=== PATIENT | female | born 1965 ===

== ENCOUNTER 2021-08-29 08:33 | Inpatient (IN) | payer MEDICAID, OTHER ==
[~2021-08-29] VITALS: Ht 165.1 cm; Wt 120.0 kg
[2021-08-29] MEDS ORDERED: ACETAMINOPHEN 325 MG TAB PO ONE (09:00)
[2021-08-29] MEDS ORDERED: cefTRIAXone 1GM/50ML D5W 50 ML IV ONE (09:45)
[2021-08-29] MEDS ORDERED: AZITHROMYCIN 500MG/ 250ML 250 ML IV ONE (09:45)
[2021-08-29] MEDS ORDERED: DexAMETHasone SOD PHOS 10MG/1ML VIAL INJ IV ONE (09:45)
[2021-08-29 09:53] LABS: Hemoglobin 15.9 g/dL (12.2-16.2); Mean Corpuscular Hgb Conc. 33.8 g/dL (32.0-36.0); Red Blood Cells 5.67 10^6/uL (4.0-5.20); Red Cell Distribution Width 13.5 % (11.8-14.3); White Blood Cell 12.8 10^3/uL (4.4-10.8)
[2021-08-29 10:27] LABS: Basophils % (manual) 0 (0.0-2.0); Blast Cells 0; Eosinophils % (manual) 0 (0-7); Metamyelocytes % 0; Myelocytes % 0; Promyelocytes % 0; Reactive Lymphocytes 0
[2021-08-29 10:33] LABS: Lactic Acid w/Reflex 5.9 mmol/L (0.4-2.0)
[2021-08-29 10:46] LABS: Band Neutrophils % (manual) 31; Lymphocytes % (manual) 5 (10.0-50.0); Monocytes % (manual) 1 (0-12)
[2021-08-29] MEDS ORDERED: ASCORBIC ACID 500 MG TAB PO ONE (11:15)
[2021-08-29] MEDS ORDERED: CHOLECALCIFEROL (VITD3) 2,000 UNIT CAP/TAB PO ONE (11:15)
[2021-08-29] MEDS ORDERED: ZINC SULFATE 220mg CAP or TAB PO ONE (11:15)
[2021-08-29 11:25] LABS: Albumin 2.4 g/dL (3.4-5.0); Calcium 8.2 mg/dL (8.5-10.1); Potassium 3.2 mmol/L (3.5-5.1)
[2021-08-29 11:31] LABS: BUN/Creatinine Ratio 12.7; Bilirubin, Total 0.7 mg/dL (0.2-1.0); Total Protein 7.2 g/dL (6.4-8.2)
[2021-08-29] MEDS ORDERED: POTASSIUM EFFERVESENT TAB 25 MEQ PO ONE (12:45)
[2021-08-29 13:10] VITALS: BP 81/60
[2021-08-29 15:03] VITALS: BP 96/52
[2021-08-29] MEDS ORDERED: NITROGLYCERIN 0.4 MG SL TAB SL PRN (15:30)
[2021-08-29] MEDS ORDERED: DexAMETHasone SOD PHOS 4 MG/1ML SDV INJ IV ONE (15:30)
[2021-08-29] MEDS ORDERED: MORPHINE SULFATE INJECTION 2 MG/ML SYRG IV PRN (15:30)
[2021-08-29] MEDS ORDERED: ALBUMIN 25% 100 ML IV ONE (15:30)
[2021-08-29 18:12] VITALS: BP 110/60
[2021-08-29] MEDS ORDERED: VANCOMYCIN PER PHARMACY 0 MG IV SCH (22:45)
[2021-08-29] MEDS ORDERED: TEMAZEPAM 15 MG CAP PO ONE (22:45)
[2021-08-29] MEDS ORDERED: VANCOMYCIN 1GM/250ML 250 ML IV ONE (23:00)
[2021-08-29] MEDS ORDERED: ETOMIDATE (2MG/ML) 20ML VIAL IV ONE (23:49)
[2021-08-29] MEDS ORDERED: SUCCINYLCHOLINE CHLORIDE 20 MG/ML 10ML VIAL IV ONE (23:49)
[2021-08-30] VITALS (7 sets, daily range): BP systolic 91–121; BP diastolic 59–83
[2021-08-30] MEDS ORDERED: ETOMIDATE (2MG/ML) 20ML VIAL IV ONE
[2021-08-30] MEDS ORDERED: SUCCINYLCHOLINE CHLORIDE 20 MG/ML 10ML VIAL IV ONE
[2021-08-30] MEDS ORDERED: LORazepam 2MG/ML-1ML VIAL IV PRN (00:30)
[2021-08-30] MEDS ORDERED: PANTOPRAZOLE 40 MG/10 ML VIAL INJ IV ONE (00:30)
[2021-08-30] MEDS ORDERED: ALBUMIN 25% 100 ML IV ONE (00:30)
[2021-08-30] MEDS ORDERED: MORPHINE SULFATE 4 MG/ML SYR/VIAL IV PRN (00:30)
[2021-08-30] MEDS ORDERED: MAGNESIUM SULFATE 1GM/100ML 100 ML IV ONE (00:30)
[2021-08-30] MEDS ORDERED: REMDESIVIR PER PHARMACY 0 ML IV SCH (00:30)
[2021-08-30] MEDS ORDERED: VANCOMYCIN PER PHARMACY 1,000 MG IV SCH (00:30)
[2021-08-30] MEDS ORDERED: ENOXAPARIN SOD 100 MG/1 ML SYRINGE SC ONE (00:30)
[2021-08-30] MEDS ORDERED: ALBUTEROL SULF HFA 90MCG INH 200DOSE IN PRN (00:30)
[2021-08-30] MEDS ORDERED: ACETAMINOPHEN 500 MG TAB PO PRN (00:30)
[2021-08-30] MEDS ORDERED: POTASSIUM CHL 20MEQ/100ML 100 ML IV ONE (00:30)
[2021-08-30] MEDS ORDERED: MIDAZOLAM DRIP 50 mg/50mL 50 ML IV ONE (00:33)
[2021-08-30] MEDS ORDERED: HYDROcodone-ACET 5/325MG TAB PO PRN (00:45)
[2021-08-30] MEDS ORDERED: MORPHINE SULFATE INJECTION 2 MG/ML SYRG IV PRN ×2 (00:45)
[2021-08-30] MEDS ORDERED: DOCUSATE SOD 100 MG CAP PO PRN (00:45)
[2021-08-30] MEDS ORDERED: ONDANSETRON HCL 4 MG/2 ML VIAL IV PRN (00:45)
[2021-08-30] MEDS ORDERED: ALUM & MAG HYDROX-SIMETH LIQ(MAALOX) 30 ML PO PRN (00:45)
[2021-08-30] MEDS ORDERED: LORazepam 0.5 MG TAB PO PRN (00:45)
[2021-08-30] MEDS ORDERED: NITROGLYCERIN 0.4 MG SL TAB SL PRN (00:45)
[2021-08-30] MEDS: PHENYLEPHRINE IV 250 ML IV SCH ×3 (02:45→19:25)
[2021-08-30] MEDS ORDERED: fentaNYL Drip 2500mCg/250mlNS 250 ML IV SCH (02:45)
[2021-08-30] MEDS: NOREPINEPHRINE 8 MG/250ML KIT 250 ML IV SCH (02:49)
[2021-08-30] MEDS: fentaNYL Drip 2500mCg/250mlNS 250 ML IV SCH (02:50)
[2021-08-30] MEDS: PROPOFOL 100 ML IV SCH (04:01)
[2021-08-30] MEDS: ALBUMIN 25% 100 ML IV SCH ×3 (06:00→22:00)
[2021-08-30] MEDS ORDERED: PIPERACILLIN-TAZOB 3.375GM 100 ML IV SCH (06:00)
[2021-08-30 06:33] LABS: Basophils # (auto) 0 10 ^3/uL (0-0.2); Basophils % (auto) 0.2 % (0.0-2.0); Eosinophils # (auto) 0 10 ^3/uL (0-0.8); Hematocrit 40.5 % (36.0-46.0); Hemoglobin 13.9 g/dL (12.2-16.2); Lymphocytes # (auto) 0.6 10 ^3/uL (0.4-5.4); Lymphocytes % (auto) 3.7 % (10.0-50.0); Mean Corpuscular Hemoglobin 28.1 pg (28.0-32.0); Mean Corpuscular Hgb Conc. 34.3 g/dL (32.0-36.0); Mean Corpuscular Volume 81.8 fL (80.0-100.0); Monocytes # (auto) 0.3 10 ^3/uL (0-1.3); Monocytes % (auto) 2.2 % (0.0-12.0); Neutrophils # (auto) 14.6 10 ^3/uL (1.6-8.6); Neutrophils % (auto) 93.9 % (37.0-80.0); Nucleated Red Blood Cells % 0.1 %; Red Blood Cells 4.96 10^6/uL (4.0-5.20); Red Cell Distribution Width 13.9 % (11.8-14.3); White Blood Cell 15.5 10^3/uL (4.4-10.8)
[2021-08-30 06:51] LABS: INR 0.99 (0.9-1.15); Partial Thromboplastin Time 37.7 sec (23.6-33.0)
[2021-08-30 06:53] LABS: Potassium 3.9 mmol/L (3.5-5.1)
[2021-08-30 07:00] LABS: Thyroid Stimulating Hormone 0.21 uIU/mL (0.358-3.74)
[2021-08-30 07:07] LABS: Albumin 2.9 g/dL (3.4-5.0); BUN/Creatinine Ratio 18.6; Bilirubin, Total 0.8 mg/dL (0.2-1.0); Calcium 7.9 mg/dL (8.5-10.1); Magnesium 3.4 mg/dL (1.6-2.6); Phosphorus 3.5 mg/dL (2.5-4.90); Uric Acid 5.7 mg/dL (2.6-6.0)
[2021-08-30] MEDS ORDERED: BUDESONIDE (INHALATION) 180 MCG IH IN SCH (10:00)
[2021-08-30] MEDS: ENOXAPARIN SOD 100 MG/1 ML SYRINGE SC SCH ×2 (10:23→22:00)
[2021-08-30] MEDS: PANTOPRAZOLE 40 MG/10 ML VIAL INJ IV SCH (10:23)
[2021-08-30] MEDS: CHOLECALCIFEROL (VITD3) 2,000 UNIT CAP/TAB PO SCH (10:23)
[2021-08-30] MEDS: POTASSIUM CHL 20 Meq TABLET PO SCH ×2 (10:23→22:00)
[2021-08-30] MEDS: IVERMECTIN 3 MG TAB PO SCH (10:23)
[2021-08-30] MEDS: DexAMETHasone SOD PHOS 10MG/1ML VIAL INJ IV SCH (10:23)
[2021-08-30] MEDS: ASCORBIC ACID 1,000 MG TAB PO SCH (10:23)
[2021-08-30] MEDS: ASPirin 81 mg TAB PO SCH (10:23)
[2021-08-30] MEDS: ZINC SULFATE 220mg CAP or TAB PO SCH (10:23)
[2021-08-30] MEDS: MEROPENEM 1GM IVPB 100 ML IV SCH ×2 (11:52→23:06)
[2021-08-30] MEDS ORDERED: VANCOMYCIN 500 MG in D5W 5% 100 ML IV ONE (18:00)
[2021-08-30] MEDS: ATORVASTATIN 20 MG TAB PO SCH (22:00)
[2021-08-31] VITALS (35 sets, daily range): BP systolic 97–129; BP diastolic 58–83
[2021-08-31] MEDS: NOREPINEPHRINE 8 MG/250ML KIT 250 ML IV SCH (00:30)
[2021-08-31] MEDS: fentaNYL Drip 2500mCg/250mlNS 250 ML IV SCH ×2 (01:00→20:28)
[2021-08-31] MEDS: PROPOFOL 100 ML IV SCH ×2 (02:45→17:39)
[2021-08-31] MEDS: PHENYLEPHRINE IV 250 ML IV SCH ×3 (03:45→20:25)
[2021-08-31 05:26] LABS: Alcohol, Urine < 3.0 mg/dL (0-10); Amphetamine Screen, Urine POSITIVE (NEGATIVE); Barbiturate Scree,Urine NEGATIVE (NEGATIVE); Cannabinoid Screen, Urine NEGATIVE (NEGATIVE); Sodium Urine < 5 mmol/L (40-220)
[2021-08-31 05:31] LABS: Urine Bacteria FEW /hpf (None Seen); Urine Blood 1+ /uL (Negative); Urine Hyaline Cast MOD /lpf (0 - 2); Urine WBC 6 /hpf (0 - 5)
[2021-08-31 05:43] LABS: Benzodiazephine Screen, Urine POSITIVE (NEGATIVE); Cocaine Screen, Urine NEGATIVE (NEGATIVE); Creatinine, Urine 171 mg/dL (30.0-125.0); Opiate Scree,Urine NEGATIVE (NEGATIVE); Phencyclidine Screen, Urine NEGATIVE (NEGATIVE)
[2021-08-31 07:23] LABS: Basophils # (auto) 0 10 ^3/uL (0-0.2); Basophils % (auto) 0.1 % (0.0-2.0); Eosinophils # (auto) 0 10 ^3/uL (0-0.8); Hematocrit 35.6 % (36.0-46.0); Hemoglobin 11.8 g/dL (12.2-16.2); Lymphocytes # (auto) 0.4 10 ^3/uL (0.4-5.4); Lymphocytes % (auto) 3.4 % (10.0-50.0); Mean Corpuscular Hemoglobin 27.6 pg (28.0-32.0); Mean Corpuscular Hgb Conc. 33.1 g/dL (32.0-36.0); Mean Corpuscular Volume 83.3 fL (80.0-100.0); Monocytes # (auto) 0.4 10 ^3/uL (0-1.3); Monocytes % (auto) 3.6 % (0.0-12.0); Neutrophils # (auto) 10.9 10 ^3/uL (1.6-8.6); Neutrophils % (auto) 92.9 % (37.0-80.0); Nucleated Red Blood Cells % 0.1 %; Red Blood Cells 4.27 10^6/uL (4.0-5.20); Red Cell Distribution Width 13.8 % (11.8-14.3); White Blood Cell 11.8 10^3/uL (4.4-10.8)
[2021-08-31 07:46] LABS: Potassium 4.7 mmol/L (3.5-5.1)
[2021-08-31 07:53] LABS: Albumin 3.1 g/dL (3.4-5.0); BUN/Creatinine Ratio 18.4; Bilirubin, Total 0.8 mg/dL (0.2-1.0); Calcium 7.3 mg/dL (8.5-10.1)
[2021-08-31] MEDS: ASCORBIC ACID 1,000 MG TAB PO SCH (10:00)
[2021-08-31] MEDS: DexAMETHasone SOD PHOS 10MG/1ML VIAL INJ IV SCH (10:00)
[2021-08-31] MEDS: PANTOPRAZOLE 40 MG/10 ML VIAL INJ IV SCH (10:00)
[2021-08-31] MEDS: POTASSIUM CHL 20 Meq TABLET PO SCH (10:00)
[2021-08-31] MEDS: ZINC SULFATE 220mg CAP or TAB PO SCH (10:00)
[2021-08-31] MEDS: CHOLECALCIFEROL (VITD3) 2,000 UNIT CAP/TAB PO SCH (10:00)
[2021-08-31] MEDS: ENOXAPARIN SOD 100 MG/1 ML SYRINGE SC SCH ×2 (10:00→21:00)
[2021-08-31] MEDS: ASPirin 81 mg TAB PO SCH (10:00)
[2021-08-31] MEDS: MEROPENEM 1GM IVPB 100 ML IV SCH ×2 (11:17→23:00)
[2021-08-31] MEDS: IVERMECTIN 3 MG TAB PO SCH (13:14)
[2021-08-31] MEDS ORDERED: DOPamine 1600MCG/ML D5W 250 ML IV SCH (13:15)
[2021-08-31] MEDS: SODIUM BICARBONATE 50ML VIAL 50 ML in SOD CHL 0.45% 1,000 ML IV SCH ×2 (16:30→23:45)
[2021-08-31] MEDS: ERGOCALCIFEROL 50,000 UNIT(1.25MG) CAP PO SCH (17:05)
[2021-08-31] MEDS: ATORVASTATIN 20 MG TAB PO SCH (21:00)
[2021-09-01] VITALS (80 sets, daily range): BP systolic 80–115; BP diastolic 47–76
[2021-09-01] MEDS: NOREPINEPHRINE 8 MG/250ML KIT 250 ML IV SCH (00:30)
[2021-09-01] MEDS: PHENYLEPHRINE IV 250 ML IV SCH ×3 (04:45→21:25)
[2021-09-01] MEDS ORDERED: SODIUM BICARBONATE 8.4 % INJ 50ML VIAL IV ONE (06:19)
[2021-09-01] MEDS: POTASSIUM CHL 20 Meq TABLET PO SCH (07:46)
[2021-09-01] MEDS: ENOXAPARIN SOD 100 MG/1 ML SYRINGE SC SCH (07:47)
[2021-09-01] MEDS: DexAMETHasone SOD PHOS 10MG/1ML VIAL INJ IV SCH (08:08)
[2021-09-01] MEDS: PANTOPRAZOLE 40 MG/10 ML VIAL INJ IV SCH (08:08)
[2021-09-01] MEDS: ASPirin 81 mg TAB PO SCH (08:08)
[2021-09-01] MEDS: IVERMECTIN 3 MG TAB PO SCH (08:09)
[2021-09-01] MEDS: ZINC SULFATE 220mg CAP or TAB PO SCH (08:09)
[2021-09-01] MEDS: ASCORBIC ACID 1,000 MG TAB PO SCH (08:09)
[2021-09-01] MEDS: CHOLECALCIFEROL (VITD3) 2,000 UNIT CAP/TAB PO SCH (08:09)
[2021-09-01] MEDS: SODIUM BICARBONATE 50ML VIAL 50 ML in SOD CHL 0.45% 1,000 ML IV SCH (10:49)
[2021-09-01] MEDS: MEROPENEM 1GM IVPB 100 ML IV SCH (11:00)
[2021-09-01] MEDS: PROPOFOL 100 ML IV SCH ×4 (11:35→22:49)
[2021-09-01] MEDS: DOPamine 1600MCG/ML D5W 250 ML IV SCH (12:00)
[2021-09-01] MEDS ORDERED: FUROSEMIDE 100 MG/10ML VIAL IV ONE (12:00)
[2021-09-01 12:53] LABS: Basophils # (auto) 0 10 ^3/uL (0-0.2); Basophils % (auto) 0.5 % (0.0-2.0); Eosinophils # (auto) 0 10 ^3/uL (0-0.8); Hematocrit 35.1 % (36.0-46.0); Hemoglobin 11.8 g/dL (12.2-16.2); Lymphocytes # (auto) 0.3 10 ^3/uL (0.4-5.4); Lymphocytes % (auto) 3.5 % (10.0-50.0); Mean Corpuscular Hemoglobin 28.6 pg (28.0-32.0); Mean Corpuscular Hgb Conc. 33.6 g/dL (32.0-36.0); Monocytes # (auto) 0.4 10 ^3/uL (0-1.3); Monocytes % (auto) 4.7 % (0.0-12.0); Neutrophils # (auto) 8.2 10 ^3/uL (1.6-8.6); Neutrophils % (auto) 91.3 % (37.0-80.0); Nucleated Red Blood Cells % 0.1 %; Red Blood Cells 4.12 10^6/uL (4.0-5.20); Red Cell Distribution Width 13.8 % (11.8-14.3)
[2021-09-01 13:15] LABS: BUN/Creatinine Ratio 18.2; Calcium 6.9 mg/dL (8.5-10.1); Potassium 5.2 mmol/L (3.5-5.1)
[2021-09-01] MEDS: FUROSEMIDE 100 MG/10ML VIAL IV SCH ×2 (18:00→20:00)
[2021-09-01] MEDS: fentaNYL Drip 2500mCg/250mlNS 250 ML IV SCH (18:30)
[2021-09-01] MEDS: ATORVASTATIN 20 MG TAB PO SCH (22:46)
[2021-09-01] MEDS: MEROPENEM 500MG IVPB 50 ML IV SCH (22:47)
[2021-09-02] VITALS (89 sets, daily range): BP systolic 78–142; BP diastolic 49–92
[2021-09-02] MEDS ORDERED: SODIUM BICARBONATE 8.4 % INJ 50ML VIAL IV ONE ×2 (00:02→20:18)
[2021-09-02] MEDS: SODIUM BICARBONATE 50ML VIAL 50 ML in SOD CHL 0.45% 1,000 ML IV SCH ×6 (00:06→23:34)
[2021-09-02] MEDS: PROPOFOL 100 ML IV SCH ×4 (01:00→20:30)
[2021-09-02] MEDS: NOREPINEPHRINE 8 MG/250ML KIT 250 ML IV SCH (04:00)
[2021-09-02 04:45] LABS: White Blood Cell 9.3 10^3/uL (4.4-10.8)
[2021-09-02 05:01] LABS: Potassium 5.2 mmol/L (3.5-5.1)
[2021-09-02 05:20] LABS: Hematocrit 34.7 % (36.0-46.0); Hemoglobin 11.7 g/dL (12.2-16.2); Mean Corpuscular Hemoglobin 28.1 pg (28.0-32.0); Mean Corpuscular Hgb Conc. 33.7 g/dL (32.0-36.0); Mean Corpuscular Volume 83.3 fL (80.0-100.0); Red Blood Cells 4.16 10^6/uL (4.0-5.20); Red Cell Distribution Width 13.5 % (11.8-14.3)
[2021-09-02] MEDS: PHENYLEPHRINE IV 250 ML IV SCH (05:45)
[2021-09-02 05:47] LABS: Basophils % (manual) 0 (0.0-2.0); Blast Cells 0; Eosinophils % (manual) 0 (0-7); Promyelocytes % 0; Reactive Lymphocytes 0
[2021-09-02] MEDS: FUROSEMIDE 100 MG/10ML VIAL IV SCH (06:00)
[2021-09-02 07:28] LABS: Band Neutrophils % (manual) 1; Lymphocytes % (manual) 9 (10.0-50.0); Metamyelocytes % 5; Monocytes % (manual) 1 (0-12); Myelocytes % 4
[2021-09-02] MEDS: PANTOPRAZOLE 40 MG/10 ML VIAL INJ IV SCH (09:26)
[2021-09-02] MEDS: ASCORBIC ACID 1,000 MG TAB PO SCH (09:26)
[2021-09-02] MEDS: DexAMETHasone SOD PHOS 10MG/1ML VIAL INJ IV SCH (09:26)
[2021-09-02] MEDS: ZINC SULFATE 220mg CAP or TAB PO SCH (09:26)
[2021-09-02] MEDS: ASPirin 81 mg TAB PO SCH (09:26)
[2021-09-02] MEDS: IVERMECTIN 3 MG TAB PO SCH (09:26)
[2021-09-02] MEDS: ENOXAPARIN SOD 100 MG/1 ML SYRINGE SC SCH (09:27)
[2021-09-02] MEDS: CHOLECALCIFEROL (VITD3) 2,000 UNIT CAP/TAB PO SCH (09:27)
[2021-09-02] MEDS: MIDAZOLAM DRIP 50 mg/50mL 50 ML IV SCH ×4 (09:30→22:02)
[2021-09-02] MEDS: POTASSIUM CHL 20 Meq TABLET PO SCH (10:00)
[2021-09-02] MEDS: fentaNYL Drip 2500mCg/250mlNS 250 ML IV SCH ×2 (10:00→21:00)
[2021-09-02] MEDS: MEROPENEM 500MG IVPB 50 ML IV SCH ×2 (10:00→11:00)
[2021-09-02] MEDS: DOPamine 1600MCG/ML D5W 250 ML IV SCH (12:00)
[2021-09-02] MEDS: ROCURONIUM BROMIDE 1,000 MG in D5W 5% 150 ML IV SCH (17:30)
[2021-09-02] MEDS: ATORVASTATIN 20 MG TAB PO SCH (22:00)
[2021-09-03] VITALS (96 sets, daily range): BP systolic 91–178; BP diastolic 54–102
[2021-09-03] MEDS: PROPOFOL 100 ML IV SCH ×7 (00:30→23:30)
[2021-09-03] MEDS ORDERED: ROCURONIUM 10MG/ML 10ML VIAL IV ONE (03:08)
[2021-09-03] MEDS: MIDAZOLAM DRIP 50 mg/50mL 50 ML IV SCH ×4 (04:00→18:31)
[2021-09-03 04:56] LABS: Hematocrit 34.6 % (36.0-46.0); Hemoglobin 11.6 g/dL (12.2-16.2); Mean Corpuscular Hemoglobin 27.9 pg (28.0-32.0); Mean Corpuscular Hgb Conc. 33.5 g/dL (32.0-36.0); Mean Corpuscular Volume 83.3 fL (80.0-100.0); Red Blood Cells 4.16 10^6/uL (4.0-5.20); Red Cell Distribution Width 13.9 % (11.8-14.3); White Blood Cell 15.7 10^3/uL (4.4-10.8)
[2021-09-03 05:21] LABS: Albumin 2.1 g/dL (3.4-5.0); Calcium 6.2 mg/dL (8.5-10.1); Magnesium 2.9 mg/dL (1.6-2.6); Potassium 5.5 mmol/L (3.5-5.1)
[2021-09-03 05:23] LABS: Basophils % (manual) 0 (0.0-2.0); Blast Cells 0; Promyelocytes % 0; Reactive Lymphocytes 0
[2021-09-03 05:31] LABS: BUN/Creatinine Ratio 20.6; Bilirubin, Total 0.8 mg/dL (0.2-1.0); CRP High Sensitivity 8.94 mg/dL (< 0.3); Total Protein 5.2 g/dL (6.4-8.2)
[2021-09-03 06:15] LABS: Phosphorus 10.5 mg/dL (2.5-4.90)
[2021-09-03 07:19] LABS: Band Neutrophils % (manual) 15; Eosinophils % (manual) 2 (0-7); Lymphocytes % (manual) 6 (10.0-50.0); Metamyelocytes % 1; Monocytes % (manual) 2 (0-12); Myelocytes % 3
[2021-09-03] MEDS: ROCURONIUM BROMIDE 1,000 MG in D5W 5% 150 ML IV SCH (08:01)
[2021-09-03] MEDS: SODIUM BICARBONATE 50ML VIAL 50 ML in SOD CHL 0.45% 1,000 ML IV SCH ×2 (08:53→22:30)
[2021-09-03] MEDS: FUROSEMIDE 100 MG/10ML VIAL IV SCH ×2 (08:55→18:00)
[2021-09-03] MEDS: DexAMETHasone SOD PHOS 10MG/1ML VIAL INJ IV SCH (08:56)
[2021-09-03] MEDS: ASPirin 81 mg TAB PO SCH (08:57)
[2021-09-03] MEDS: PANTOPRAZOLE 40 MG/10 ML VIAL INJ IV SCH (08:57)
[2021-09-03] MEDS: ASCORBIC ACID 1,000 MG TAB PO SCH (08:57)
[2021-09-03] MEDS: ZINC SULFATE 220mg CAP or TAB PO SCH (08:57)
[2021-09-03] MEDS: IVERMECTIN 3 MG TAB PO SCH (08:57)
[2021-09-03] MEDS: POTASSIUM CHL 20 Meq TABLET PO SCH (08:57)
[2021-09-03] MEDS: ENOXAPARIN SOD 100 MG/1 ML SYRINGE SC SCH (08:58)
[2021-09-03] MEDS: CHOLECALCIFEROL (VITD3) 2,000 UNIT CAP/TAB PO SCH (08:58)
[2021-09-03] MEDS: fentaNYL Drip 2500mCg/250mlNS 250 ML IV SCH ×2 (10:00→22:30)
[2021-09-03] MEDS: MEROPENEM 500MG IVPB 50 ML IV SCH ×2 (11:00→23:00)
[2021-09-03] MEDS ORDERED: SODIUM CHL 0.9% 1000 ML BAG XX ONE (11:15)
[2021-09-03] MEDS: DOPamine 1600MCG/ML D5W 250 ML IV SCH (12:00)
[2021-09-03] MEDS ORDERED: HEPARIN SODIUM (PORCINE) 5000 UNITS/ML 1ML VIAL IV ONE (12:45)
[2021-09-03] MEDS: CALCIUM ACETATE 667 MG CAP NG SCH ×2 (14:00→22:00)
[2021-09-03] MEDS ORDERED: Glucerna 1.2 Cal 1Liter BOTTLE GT SCH (16:45)
[2021-09-03] MEDS: NOREPINEPHRINE 8 MG/250ML KIT 250 ML IV SCH (19:00)
[2021-09-03] MEDS ORDERED: EPOETIN ALFA-EPBX 10,000 UNIT/1ML VIAL SC ONE (21:00)
[2021-09-03] MEDS: ATORVASTATIN 20 MG TAB PO SCH (21:00)
[2021-09-04] VITALS (97 sets, daily range): BP systolic 97–133; BP diastolic 53–81
[2021-09-04] MEDS: NOREPINEPHRINE 8 MG/250ML KIT 250 ML IV SCH (00:30)
[2021-09-04] MEDS: PROPOFOL 100 ML IV SCH ×4 (02:00→21:00)
[2021-09-04] MEDS: MIDAZOLAM DRIP 50 mg/50mL 50 ML IV SCH ×3 (04:00→15:44)
[2021-09-04 04:54] LABS: Hematocrit 34.3 % (36.0-46.0); Hemoglobin 11.7 g/dL (12.2-16.2); Mean Corpuscular Volume 82.5 fL (80.0-100.0); Red Blood Cells 4.16 10^6/uL (4.0-5.20); Red Cell Distribution Width 13.9 % (11.8-14.3); White Blood Cell 16.1 10^3/uL (4.4-10.8)
[2021-09-04 05:10] LABS: Calcium 6.1 mg/dL (8.5-10.1); Potassium 5.1 mmol/L (3.5-5.1)
[2021-09-04 05:13] LABS: BUN/Creatinine Ratio 18.7
[2021-09-04 05:21] LABS: Basophils % (manual) 0 (0.0-2.0); Blast Cells 0; Promyelocytes % 0; Reactive Lymphocytes 0
[2021-09-04] MEDS: CALCIUM ACETATE 667 MG CAP NG SCH ×2 (06:00→14:00)
[2021-09-04] MEDS: FUROSEMIDE 100 MG/10ML VIAL IV SCH ×2 (06:00→18:26)
[2021-09-04] MEDS: SODIUM BICARBONATE 50ML VIAL 50 ML in SOD CHL 0.45% 1,000 ML IV SCH ×2 (08:00→21:00)
[2021-09-04 08:04] LABS: Band Neutrophils % (manual) 7; Eosinophils % (manual) 2 (0-7); Lymphocytes % (manual) 11 (10.0-50.0); Metamyelocytes % 4; Monocytes % (manual) 2 (0-12); Myelocytes % 2
[2021-09-04] MEDS: ROCURONIUM BROMIDE 1,000 MG in D5W 5% 150 ML IV SCH (09:28)
[2021-09-04] MEDS: ENOXAPARIN SOD 100 MG/1 ML SYRINGE SC SCH (10:00)
[2021-09-04] MEDS: POTASSIUM CHL 20 Meq TABLET PO SCH (10:00)
[2021-09-04] MEDS: DexAMETHasone SOD PHOS 10MG/1ML VIAL INJ IV SCH (11:10)
[2021-09-04] MEDS: ZINC SULFATE 220mg CAP or TAB PO SCH (11:11)
[2021-09-04] MEDS: PANTOPRAZOLE 40 MG/10 ML VIAL INJ IV SCH (11:11)
[2021-09-04] MEDS: ASPirin 81 mg TAB PO SCH (11:11)
[2021-09-04] MEDS: CHOLECALCIFEROL (VITD3) 2,000 UNIT CAP/TAB PO SCH (11:12)
[2021-09-04] MEDS: ASCORBIC ACID 1,000 MG TAB PO SCH (11:12)
[2021-09-04] MEDS: DOPamine 1600MCG/ML D5W 250 ML IV SCH ×2 (12:00→18:27)
[2021-09-04] MEDS: MEROPENEM 500MG IVPB 50 ML IV SCH ×2 (12:00→23:00)
[2021-09-04] MEDS: fentaNYL Drip 2500mCg/250mlNS 250 ML IV SCH (21:00)
[2021-09-04] MEDS: ATORVASTATIN 20 MG TAB PO SCH (21:00)
[2021-09-05] VITALS (99 sets, daily range): BP systolic 97–160; BP diastolic 56–90
[2021-09-05] MEDS: NOREPINEPHRINE 8 MG/250ML KIT 250 ML IV SCH ×2 (00:30→07:29)
[2021-09-05] MEDS: MIDAZOLAM DRIP 50 mg/50mL 50 ML IV SCH (03:00)
[2021-09-05 04:35] LABS: Basophils # (auto) 0.1 10 ^3/uL (0-0.2); Basophils % (auto) 0.3 % (0.0-2.0); Eosinophils # (auto) 0.1 10 ^3/uL (0-0.8); Eosinophils % (auto) 0.5 % (0.0-7.0); Hematocrit 30.6 % (36.0-46.0); Hemoglobin 10.2 g/dL (12.2-16.2); Lymphocytes # (auto) 0.7 10 ^3/uL (0.4-5.4); Lymphocytes % (auto) 4.2 % (10.0-50.0); Mean Corpuscular Hemoglobin 28.1 pg (28.0-32.0); Mean Corpuscular Hgb Conc. 33.5 g/dL (32.0-36.0); Mean Corpuscular Volume 83.9 fL (80.0-100.0); Monocytes # (auto) 0.7 10 ^3/uL (0-1.3); Monocytes % (auto) 3.9 % (0.0-12.0); Neutrophils # (auto) 15.7 10 ^3/uL (1.6-8.6); Neutrophils % (auto) 91.1 % (37.0-80.0); Nucleated Red Blood Cells % 0.1 %; Red Blood Cells 3.64 10^6/uL (4.0-5.20); Red Cell Distribution Width 14.1 % (11.8-14.3); White Blood Cell 17.2 10^3/uL (4.4-10.8)
[2021-09-05 04:52] LABS: BUN/Creatinine Ratio 17.9
[2021-09-05 05:40] LABS: Potassium 6.3 mmol/L (3.5-5.1)
[2021-09-05 05:41] LABS: Calcium 5.9 mg/dL (8.5-10.1)
[2021-09-05] MEDS: ROCURONIUM BROMIDE 1,000 MG in D5W 5% 150 ML IV SCH (05:42)
[2021-09-05] MEDS: FUROSEMIDE 100 MG/10ML VIAL IV SCH ×2 (06:00→18:59)
[2021-09-05] MEDS ORDERED: SODIUM CHL 0.9% 1000 ML BAG XX ONE (07:00)
[2021-09-05] MEDS: PROPOFOL 100 ML IV SCH (07:27)
[2021-09-05] MEDS: POTASSIUM CHL 20 Meq TABLET PO SCH (10:00)
[2021-09-05] MEDS: ASPirin 81 mg TAB PO SCH (12:00)
[2021-09-05] MEDS: ASCORBIC ACID 1,000 MG TAB PO SCH (12:00)
[2021-09-05] MEDS: DexAMETHasone SOD PHOS 10MG/1ML VIAL INJ IV SCH (12:00)
[2021-09-05] MEDS: PANTOPRAZOLE 40 MG/10 ML VIAL INJ IV SCH (12:00)
[2021-09-05] MEDS: ZINC SULFATE 220mg CAP or TAB PO SCH (12:00)
[2021-09-05] MEDS: ENOXAPARIN SOD 100 MG/1 ML SYRINGE SC SCH (12:00)
[2021-09-05] MEDS: CHOLECALCIFEROL (VITD3) 2,000 UNIT CAP/TAB PO SCH (12:00)
[2021-09-05] MEDS: LINEZOLID 600MG/300ML 300 ML IV SCH (14:19)
[2021-09-05] MEDS: MEROPENEM 500MG IVPB 50 ML IV SCH ×2 (16:30→22:55)
[2021-09-05] MEDS: SODIUM BICARBONATE 50ML VIAL 50 ML in SOD CHL 0.45% 1,000 ML IV SCH (21:56)
[2021-09-05] MEDS: ATORVASTATIN 20 MG TAB PO SCH (22:23)
[2021-09-05] MEDS: CALCIUM ACETATE 667 MG CAP NG SCH ×2 (22:23→22:24)
[2021-09-05] MEDS: fentaNYL Drip 2500mCg/250mlNS 250 ML IV SCH (23:05)
[2021-09-06] VITALS (101 sets, daily range): BP systolic 100–133; BP diastolic 57–82
[2021-09-06] MEDS: PHENYLEPHRINE IV 250 ML IV SCH ×3 (01:25→17:25)
[2021-09-06] MEDS: ROCURONIUM BROMIDE 1,000 MG in D5W 5% 150 ML IV SCH ×2 (01:28→22:10)
[2021-09-06] MEDS: LINEZOLID 600MG/300ML 300 ML IV SCH ×2 (01:31→14:00)
[2021-09-06 04:35] LABS: Basophils # (auto) 0.1 10 ^3/uL (0-0.2); Basophils % (auto) 0.6 % (0.0-2.0); Eosinophils # (auto) 0.1 10 ^3/uL (0-0.8); Hematocrit 28.7 % (36.0-46.0); Hemoglobin 9.7 g/dL (12.2-16.2); Lymphocytes # (auto) 0.4 10 ^3/uL (0.4-5.4); Lymphocytes % (auto) 3.1 % (10.0-50.0); Mean Corpuscular Hemoglobin 28.3 pg (28.0-32.0); Mean Corpuscular Volume 83.3 fL (80.0-100.0); Monocytes # (auto) 0.5 10 ^3/uL (0-1.3); Monocytes % (auto) 3.8 % (0.0-12.0); Neutrophils # (auto) 12.7 10 ^3/uL (1.6-8.6); Neutrophils % (auto) 91.5 % (37.0-80.0); Nucleated Red Blood Cells % 0.1 %; Red Blood Cells 3.44 10^6/uL (4.0-5.20); White Blood Cell 13.8 10^3/uL (4.4-10.8)
[2021-09-06 04:52] LABS: Potassium 5.4 mmol/L (3.5-5.1)
[2021-09-06 04:57] LABS: BUN/Creatinine Ratio 16.2; Calcium 6.2 mg/dL (8.5-10.1)
[2021-09-06] MEDS: SODIUM BICARBONATE 50ML VIAL 50 ML in SOD CHL 0.45% 1,000 ML IV SCH ×2 (05:32→15:45)
[2021-09-06] MEDS: CALCIUM ACETATE 667 MG CAP NG SCH ×3 (06:43→21:11)
[2021-09-06] MEDS: FUROSEMIDE 100 MG/10ML VIAL IV SCH ×2 (06:43→17:24)
[2021-09-06] MEDS: MIDAZOLAM DRIP 50 mg/50mL 50 ML IV SCH (09:00)
[2021-09-06] MEDS: ASCORBIC ACID 1,000 MG TAB PO SCH (10:12)
[2021-09-06] MEDS: DexAMETHasone SOD PHOS 10MG/1ML VIAL INJ IV SCH (10:12)
[2021-09-06] MEDS: CHOLECALCIFEROL (VITD3) 2,000 UNIT CAP/TAB PO SCH (10:12)
[2021-09-06] MEDS: PANTOPRAZOLE 40 MG/10 ML VIAL INJ IV SCH (10:12)
[2021-09-06] MEDS: MEROPENEM 500MG IVPB 50 ML IV SCH ×2 (10:12→23:17)
[2021-09-06] MEDS: ENOXAPARIN SOD 100 MG/1 ML SYRINGE SC SCH (10:12)
[2021-09-06] MEDS: ZINC SULFATE 220mg CAP or TAB PO SCH (10:12)
[2021-09-06] MEDS: ASPirin 81 mg TAB PO SCH (10:12)
[2021-09-06] MEDS: DOPamine 1600MCG/ML D5W 250 ML IV SCH (12:00)
[2021-09-06] MEDS: PROPOFOL 100 ML IV SCH (20:09)
[2021-09-06] MEDS: fentaNYL Drip 2500mCg/250mlNS 250 ML IV SCH ×2 (20:45→22:20)
[2021-09-06] MEDS: ATORVASTATIN 20 MG TAB PO SCH (21:11)
[2021-09-07] VITALS (96 sets, daily range): BP systolic 82–154; BP diastolic 45–88
[2021-09-07] MEDS: NOREPINEPHRINE 8 MG/250ML KIT 250 ML IV SCH ×2 (00:30→10:12)
[2021-09-07] MEDS: LINEZOLID 600MG/300ML 300 ML IV SCH ×2 (02:06→14:00)
[2021-09-07] MEDS: PHENYLEPHRINE IV 250 ML IV SCH ×3 (02:11→20:14)
[2021-09-07] MEDS: SODIUM BICARBONATE 50ML VIAL 50 ML in SOD CHL 0.45% 1,000 ML IV SCH ×3 (02:46→22:46)
[2021-09-07] MEDS: MIDAZOLAM DRIP 50 mg/50mL 50 ML IV SCH ×3 (02:46→17:59)
[2021-09-07] MEDS: PROPOFOL 100 ML IV SCH ×5 (02:55→15:30)
[2021-09-07] MEDS ORDERED: ROCURONIUM 10MG/ML 10ML VIAL IV ONE ×4 (03:51→03:59)
[2021-09-07] MEDS: ROCURONIUM BROMIDE 1,000 MG in D5W 5% 150 ML IV SCH ×2 (04:30→20:15)
[2021-09-07 04:55] LABS: Hematocrit 29.4 % (36.0-46.0); Hemoglobin 9.6 g/dL (12.2-16.2); Mean Corpuscular Hemoglobin 27.7 pg (28.0-32.0); Mean Corpuscular Hgb Conc. 32.8 g/dL (32.0-36.0); Mean Corpuscular Volume 84.5 fL (80.0-100.0); Red Blood Cells 3.48 10^6/uL (4.0-5.20); White Blood Cell 16.5 10^3/uL (4.4-10.8)
[2021-09-07 05:15] LABS: BUN/Creatinine Ratio 17.2; Calcium 6.4 mg/dL (8.5-10.1); Potassium 5.2 mmol/L (3.5-5.1)
[2021-09-07 05:23] LABS: Basophils % (manual) 0 (0.0-2.0); Blast Cells 0; Metamyelocytes % 0; Myelocytes % 0; Promyelocytes % 0; Reactive Lymphocytes 0
[2021-09-07] MEDS: FUROSEMIDE 100 MG/10ML VIAL IV SCH ×2 (06:40→16:24)
[2021-09-07] MEDS: CALCIUM ACETATE 667 MG CAP NG SCH ×3 (06:40→22:37)
[2021-09-07] MEDS ORDERED: SODIUM CHL 0.9% 1000 ML BAG XX ONE (07:00)
[2021-09-07] MEDS: fentaNYL Drip 2500mCg/250mlNS 250 ML IV SCH ×3 (08:02→23:51)
[2021-09-07 09:17] LABS: Band Neutrophils % (manual) 19; Eosinophils % (manual) 1 (0-7); Lymphocytes % (manual) 5 (10.0-50.0); Monocytes % (manual) 3 (0-12)
[2021-09-07] MEDS ORDERED: ALBUMIN 25% 100 ML IV ONE ×2 (09:45→09:48)
[2021-09-07] MEDS: VASOPRESSIN 50 UNITS in D5W 5% 247.5 ML IV SCH (11:00)
[2021-09-07] MEDS: DOPamine 1600MCG/ML D5W 250 ML IV SCH (11:00)
[2021-09-07] MEDS: DexAMETHasone SOD PHOS 10MG/1ML VIAL INJ IV SCH (11:13)
[2021-09-07] MEDS: PANTOPRAZOLE 40 MG/10 ML VIAL INJ IV SCH (11:13)
[2021-09-07] MEDS: ASPirin 81 mg TAB PO SCH (11:13)
[2021-09-07] MEDS: ASCORBIC ACID 1,000 MG TAB PO SCH (11:14)
[2021-09-07] MEDS: ZINC SULFATE 220mg CAP or TAB PO SCH (11:14)
[2021-09-07] MEDS: ENOXAPARIN SOD 100 MG/1 ML SYRINGE SC SCH (11:14)
[2021-09-07] MEDS: CHOLECALCIFEROL (VITD3) 2,000 UNIT CAP/TAB PO SCH (11:14)
[2021-09-07] MEDS: MEROPENEM 500MG IVPB 50 ML IV SCH ×2 (12:31→22:46)
[2021-09-07] MEDS ORDERED: DEXTROSE (50%) 50ML SYRG IV ONE (12:50)
[2021-09-07] MEDS ORDERED: DEXTROSE 50% SYRINGE 50 ML IV ONE (12:52)
[2021-09-07] MEDS: ERGOCALCIFEROL 50,000 UNIT(1.25MG) CAP PO SCH (16:23)
[2021-09-07] MEDS: ATORVASTATIN 20 MG TAB PO SCH (22:37)
[2021-09-08] VITALS (79 sets, daily range): BP systolic 68–162; BP diastolic 23–104
[2021-09-08 01:38] LABS: Hematocrit 26.2 % (36.0-46.0); Hemoglobin 8.8 g/dL (12.2-16.2)
[2021-09-08] MEDS: LINEZOLID 600MG/300ML 300 ML IV SCH ×2 (02:06→14:51)
[2021-09-08] MEDS: PHENYLEPHRINE IV 250 ML IV SCH ×3 (03:25→20:05)
[2021-09-08 03:48] LABS: Hematocrit 26.5 % (36.0-46.0); Hemoglobin 8.9 g/dL (12.2-16.2); Mean Corpuscular Hemoglobin 27.9 pg (28.0-32.0); Mean Corpuscular Hgb Conc. 33.7 g/dL (32.0-36.0); Mean Corpuscular Volume 82.8 fL (80.0-100.0); White Blood Cell 20.6 10^3/uL (4.4-10.8)
[2021-09-08 03:52] LABS: Basophils % (manual) 0 (0.0-2.0); Blast Cells 0; Promyelocytes % 0; Reactive Lymphocytes 0
[2021-09-08 04:11] LABS: BUN/Creatinine Ratio 16.3; Calcium 6.5 mg/dL (8.5-10.1); Potassium 4.6 mmol/L (3.5-5.1)
[2021-09-08 04:26] LABS: Band Neutrophils % (manual) 12; Eosinophils % (manual) 2 (0-7); Lymphocytes % (manual) 4 (10.0-50.0); Metamyelocytes % 1; Monocytes % (manual) 1 (0-12); Myelocytes % 1
[2021-09-08] MEDS: FUROSEMIDE 100 MG/10ML VIAL IV SCH ×2 (05:30→18:00)
[2021-09-08] MEDS: CALCIUM ACETATE 667 MG CAP NG SCH ×3 (06:51→21:52)
[2021-09-08] MEDS: fentaNYL Drip 2500mCg/250mlNS 250 ML IV SCH ×2 (08:00→15:29)
[2021-09-08] MEDS: PROPOFOL 100 ML IV SCH ×4 (08:46→18:59)
[2021-09-08] MEDS: SODIUM BICARBONATE 50ML VIAL 50 ML in SOD CHL 0.45% 1,000 ML IV SCH ×2 (09:55→23:48)
[2021-09-08] MEDS: DexAMETHasone SOD PHOS 10MG/1ML VIAL INJ IV SCH (10:00)
[2021-09-08] MEDS: PANTOPRAZOLE 40 MG/10 ML VIAL INJ IV SCH (10:00)
[2021-09-08] MEDS: ASCORBIC ACID 1,000 MG TAB PO SCH (10:00)
[2021-09-08] MEDS: ASPirin 81 mg TAB PO SCH (10:00)
[2021-09-08] MEDS: ZINC SULFATE 220mg CAP or TAB PO SCH (10:00)
[2021-09-08] MEDS: VASOPRESSIN 50 UNITS in D5W 5% 247.5 ML IV SCH (11:00)
[2021-09-08] MEDS: CHOLECALCIFEROL (VITD3) 2,000 UNIT CAP/TAB PO SCH (12:34)
[2021-09-08] MEDS: ENOXAPARIN SOD 100 MG/1 ML SYRINGE SC SCH (12:35)
[2021-09-08] MEDS: MEROPENEM 500MG IVPB 50 ML IV SCH ×2 (12:35→23:47)
[2021-09-08] MEDS: NOREPINEPHRINE 8 MG/250ML KIT 250 ML IV SCH (12:55)
[2021-09-08] MEDS: ROCURONIUM BROMIDE 1,000 MG in D5W 5% 150 ML IV SCH (14:38)
[2021-09-08] MEDS: MIDAZOLAM DRIP 50 mg/50mL 50 ML IV SCH (15:30)
[2021-09-08] MEDS: ATORVASTATIN 20 MG TAB PO SCH (21:52)
[2021-09-09] VITALS (88 sets, daily range): BP systolic 84–188; BP diastolic 23–105
[2021-09-09] MEDS: DOPamine 1600MCG/ML D5W 250 ML IV SCH (02:04)
[2021-09-09] MEDS: LINEZOLID 600MG/300ML 300 ML IV SCH ×2 (02:15→15:32)
[2021-09-09 03:57] LABS: Hemoglobin 10.2 g/dL (12.2-16.2)
[2021-09-09 03:58] LABS: Hematocrit 30.3 % (36.0-46.0); Mean Corpuscular Hemoglobin 28.4 pg (28.0-32.0); Mean Corpuscular Hgb Conc. 33.6 g/dL (32.0-36.0); Mean Corpuscular Volume 84.6 fL (80.0-100.0); Red Blood Cells 3.58 10^6/uL (4.0-5.20); Red Cell Distribution Width 14.4 % (11.8-14.3)
[2021-09-09 04:07] LABS: White Blood Cell 37.8 10^3/uL (4.4-10.8)
[2021-09-09 04:09] LABS: Basophils % (manual) 0 (0.0-2.0); Blast Cells 0; Promyelocytes % 0; Reactive Lymphocytes 0
[2021-09-09 04:15] LABS: BUN/Creatinine Ratio 15.7
[2021-09-09] MEDS: PHENYLEPHRINE IV 250 ML IV SCH (04:25)
[2021-09-09 04:56] LABS: Potassium 5.9 mmol/L (3.5-5.1)
[2021-09-09] MEDS: FUROSEMIDE 100 MG/10ML VIAL IV SCH ×2 (06:00→18:00)
[2021-09-09 06:19] LABS: Band Neutrophils % (manual) 20; Lymphocytes % (manual) 5 (10.0-50.0); Monocytes % (manual) 2 (0-12)
[2021-09-09 06:20] LABS: Eosinophils % (manual) 1 (0-7); Metamyelocytes % 1; Myelocytes % 1
[2021-09-09] MEDS: CALCIUM ACETATE 667 MG CAP NG SCH ×3 (07:08→21:43)
[2021-09-09] MEDS: PROPOFOL 100 ML IV SCH ×2 (09:00→12:30)
[2021-09-09] MEDS: fentaNYL Drip 2500mCg/250mlNS 250 ML IV SCH (09:32)
[2021-09-09] MEDS: MIDAZOLAM DRIP 50 mg/50mL 50 ML IV SCH ×2 (09:33→13:41)
[2021-09-09] MEDS: DexAMETHasone SOD PHOS 10MG/1ML VIAL INJ IV SCH (09:35)
[2021-09-09] MEDS: ENOXAPARIN SOD 100 MG/1 ML SYRINGE SC SCH (09:35)
[2021-09-09] MEDS: ASCORBIC ACID 1,000 MG TAB PO SCH (09:35)
[2021-09-09] MEDS: ZINC SULFATE 220mg CAP or TAB PO SCH (09:35)
[2021-09-09] MEDS: ASPirin 81 mg TAB PO SCH (09:35)
[2021-09-09] MEDS: PANTOPRAZOLE 40 MG/10 ML VIAL INJ IV SCH (09:35)
[2021-09-09] MEDS: CHOLECALCIFEROL (VITD3) 2,000 UNIT CAP/TAB PO SCH (09:35)
[2021-09-09] MEDS: NOREPINEPHRINE 8 MG/250ML KIT 250 ML IV SCH ×2 (10:22→15:33)
[2021-09-09] MEDS ORDERED: DEXTROSE 50% SYRINGE 50 ML IV ONE ×2 (11:16→15:19)
[2021-09-09] MEDS: MEROPENEM 500MG IVPB 50 ML IV SCH ×2 (13:09→21:43)
[2021-09-09] MEDS: SODIUM BICARBONATE 50ML VIAL 50 ML in SOD CHL 0.45% 1,000 ML IV SCH ×2 (13:17→17:45)
[2021-09-09] MEDS: ATORVASTATIN 20 MG TAB PO SCH (21:43)
[2021-09-10] VITALS (48 sets, daily range): BP systolic 59–187; BP diastolic 25–101
[2021-09-10] MEDS: LINEZOLID 600MG/300ML 300 ML IV SCH (02:14)
[2021-09-10] MEDS: SODIUM BICARBONATE 50ML VIAL 50 ML in SOD CHL 0.45% 1,000 ML IV SCH (04:15)
[2021-09-10 04:24] LABS: Hematocrit 28.5 % (36.0-46.0); Hemoglobin 9.6 g/dL (12.2-16.2); Mean Corpuscular Hgb Conc. 33.5 g/dL (32.0-36.0); Mean Corpuscular Volume 83.5 fL (80.0-100.0); Red Blood Cells 3.41 10^6/uL (4.0-5.20); Red Cell Distribution Width 14.4 % (11.8-14.3); White Blood Cell 24.7 10^3/uL (4.4-10.8)
[2021-09-10 04:43] LABS: Potassium 5.2 mmol/L (3.5-5.1)
[2021-09-10 04:47] LABS: BUN/Creatinine Ratio 15.3; Calcium 6.4 mg/dL (8.5-10.1)
[2021-09-10 05:00] LABS: Basophils % (manual) 0 (0.0-2.0); Blast Cells 0; Eosinophils % (manual) 0 (0-7); Myelocytes % 0; Promyelocytes % 0; Reactive Lymphocytes 0
[2021-09-10] MEDS: FUROSEMIDE 100 MG/10ML VIAL IV SCH (06:00)
[2021-09-10] MEDS: CALCIUM ACETATE 667 MG CAP NG SCH (06:16)
[2021-09-10] MEDS: fentaNYL Drip 2500mCg/250mlNS 250 ML IV SCH (10:29)
[2021-09-10] MEDS: MIDAZOLAM DRIP 50 mg/50mL 50 ML IV SCH (10:30)
[2021-09-10] MEDS: MEROPENEM 500MG IVPB 50 ML IV SCH (11:00)
[2021-09-10] MEDS: PANTOPRAZOLE 40 MG/10 ML VIAL INJ IV SCH (11:00)
[2021-09-10] MEDS: DexAMETHasone SOD PHOS 10MG/1ML VIAL INJ IV SCH (11:00)
[2021-09-10] MEDS: ZINC SULFATE 220mg CAP or TAB PO SCH (11:01)
[2021-09-10] MEDS: ASPirin 81 mg TAB PO SCH (11:01)
[2021-09-10] MEDS: ENOXAPARIN SOD 100 MG/1 ML SYRINGE SC SCH (11:02)
[2021-09-10] MEDS: CHOLECALCIFEROL (VITD3) 2,000 UNIT CAP/TAB PO SCH (11:02)
[2021-09-10] MEDS: ASCORBIC ACID 1,000 MG TAB PO SCH (11:02)
[2021-09-10 12:06] LABS: Band Neutrophils % (manual) 11; Lymphocytes % (manual) 2 (10.0-50.0); Metamyelocytes % 1; Monocytes % (manual) 2 (0-12)
[2021-09-10] MEDS ORDERED: MORPHINE SULFATE INJECTION 2 MG/ML SYRG IV PRN (12:45)
[2021-09-10] MEDS ORDERED: LORazepam 2MG/ML-1ML VIAL IV PRN (12:45)
[2021-09-10] MEDS ORDERED: LORazepam 2MG/ML-1ML VIAL ONE (12:46)
[2021-09-10] MEDS ORDERED: MORPHINE SULFATE INJECTION 2 MG/ML SYRG ONE (12:46)
== END 2021-09-10 22:00 | DRG 720 ==
LOC: ER 08:33 → EDBD 08:33 → UNDOADMIN 15:24 → TELE 15:24 → ICU WEST 18:21 → TELE 18:21 → ICU WEST 08-31 15:30
PROVIDERS: ADMIT Hospitalist; ATTEND Internal Medicine Pulmonary Disease
PROC: 5A0935A Assistance with Respiratory Ventilation, Less than 24 Consecutive Hours, High Flow/Velocity Cannula (ICD-10-PCS; 2021-08-29)
PROC: 5A1955Z Respiratory Ventilation, Greater than 96 Consecutive Hours (ICD-10-PCS; principal; 2021-08-30)
PROC: 0BH17EZ Insertion of Endotracheal Airway into Trachea, Via Natural or Artificial Opening (ICD-10-PCS; 2021-08-30)
PROC: 06HM33Z Insertion of Infusion Device into Right Femoral Vein, Percutaneous Approach (ICD-10-PCS; 2021-08-31)
PROC: 5A1D70Z Performance of Urinary Filtration, Intermittent, Less than 6 Hours Per Day (ICD-10-PCS; 2021-09-03)
PROC: 5A1D70Z Performance of Urinary Filtration, Intermittent, Less than 6 Hours Per Day (ICD-10-PCS; 2021-09-05)
PROC: 5A1D70Z Performance of Urinary Filtration, Intermittent, Less than 6 Hours Per Day (ICD-10-PCS; 2021-09-07)
PROC: 5A1D70Z Performance of Urinary Filtration, Intermittent, Less than 6 Hours Per Day (ICD-10-PCS; 2021-09-09)
DX: A41.9 Sepsis, unspecified organism (principal); J96.01 Acute respiratory failure with hypoxia; J12.82 Pneumonia due to coronavirus disease 2019; N17.0 Acute kidney failure with tubular necrosis; U07.1 COVID-19; R65.21 Severe sepsis with septic shock; D89.839 Cytokine release syndrome, grade unspecified; I21.A1 Myocardial infarction type 2; E87.1 Hypo-osmolality and hyponatremia; E87.6 Hypokalemia; E66.01 Morbid (severe) obesity due to excess calories; N18.31 Chronic kidney disease, stage 3a; F41.9 Anxiety disorder, unspecified; J45.909 Unspecified asthma, uncomplicated; Z66 Do not resuscitate; T38.0X5A Adverse effect of glucocorticoids and synthetic analogues, initial encounter; K75.81 Nonalcoholic steatohepatitis (NASH); E88.09 Other disorders of plasma-protein metabolism, not elsewhere classified; R79.89 Other specified abnormal findings of blood chemistry; E11.22 Type 2 diabetes mellitus with diabetic chronic kidney disease; E55.9 Vitamin D deficiency, unspecified; E78.5 Hyperlipidemia, unspecified; E87.5 Hyperkalemia; Y92.89 Other specified places as the place of occurrence of the external cause; Z99.2 Dependence on renal dialysis; Z68.32 Body mass index [BMI] 32.0-32.9, adult
CPT/HCPCS: 36415; 36600; 71045; 74018; 76775; 80048; 80053; 80061; 80202; 80307; 81001; 82306; 82570; 82728; 82805; 82962; 83036; 83605; 83615; 83735; 83880; 83935; 83970; 84100; 84300; 84443; 84484; 84550; 85007; 85014; 85018; 85025; 85027; 85379; 85610; 85730; 86141; 87040; 87070; 87077; 87081; 87086; 87088; 87186; 87205; 87340; 87426; 90935; 93005; 93970; 94002; 94003; 94640; 96365; 96367; 96375; C9113; G0378; J0330; J0696; J1100; J1642; J2185; J2250; J2543; J2704; J3480; J7060; P9047